=== PATIENT | male | born 1955 | race Caucasian/White ===

== ENCOUNTER → 2018-05-07 | Outpatient (CLI) | payer BC, MEDICARE ==
[2014-09-29 15:27] VITALS: BP 158/91
[~2018-05-07] MED LIST: BUDE10.2 IH; CETI10TA22 PO; CHOL500016 PO; CHOL500045 PO; CYCL10TA2 PO; DOCU-109 PO; FENO134C PO; FLUT1DIS IH; GLIP5TAB10 PO; HYDR-2762 PO; LEVO125T5 PO; LOSA1TAB22 PO; METF850T8 PO; METH750T2 PO; NAPR220C4 PO; NAPR250T PO; OXYC-327 PO; Oxycodone Hcl/Acetaminophen PO; PIOG15TA42 PO; PROAIR HFA8.5 GM IH; SIMV20TA3 PO; VENL75CA PO
[2018-05-07 14:57] LABS: BASO # 0.1 x10^3/uL (0.0-0.2); BASO % 1 % (0-3); EOS # 0.2 x10^3/uL (0.0-0.7); EOS % 3 % (0-3); HEMATOCRIT 36.1 % (39.0-53.0); HEMOGLOBIN 12.4 g/dL (13.0-17.5); LYMPH # 1.9 x10^3/uL (1.0-4.8); LYMPH % 30 % (24-48); MEAN CORPUSCULAR HEMOGLOBIN 32 pg (25-35); MEAN CORPUSCULAR HGB CONC 34 g/dL (31-37); MEAN CORPUSCULAR VOLUME 92 fL (79-100); MONO # 0.5 x10^3/uL (0.0-1.1); MONO % 9 % (0-9); NEUT # 3.6 x10^3uL (1.8-7.7); NEUT % 57 % (31-73); PLATELET COUNT 201 x10^3/uL (140-400); RED BLOOD COUNT 3.92 x10^6/uL (4.30-5.70); RED CELL DISTRIBUTION WIDTH 14.9 % (11.5-14.5); WHITE BLOOD COUNT 6.2 x10^3/uL (4.0-11.0)
[2018-05-07 15:17] LABS: ALBUMIN 3.9 g/dL (3.4-5.0); ALBUMIN/GLOBULIN RATIO 1.1 (1.0-1.7); CALCIUM 9.4 mg/dL (8.5-10.1); POTASSIUM 3.9 mmol/L (3.5-5.1); TOTAL BILIRUBIN 0.4 mg/dL (0.2-1.0); TOTAL PROTEIN 7.3 g/dL (6.4-8.2)
== END | disposition home or self-care (01) ==
LOC: SURGPAT 13:46
PROVIDERS: ATTEND Neurological Surgery
DX: Z01.818 Encounter for other preprocedural examination (principal); M48.062 Spinal stenosis, lumbar region with neurogenic claudication; M54.16 Radiculopathy, lumbar region
CPT/HCPCS: 36415; 80053; 85025; 87641

== ENCOUNTER 2018-05-14 07:13 | Observation (INO) | payer OTHER, MEDICARE ==
[2018-05-14] VITALS (9 sets, daily range): BP systolic 129–146; BP diastolic 70–87
[~2018-05-14] VITALS: Ht 182.9 cm; Wt 140.6 kg
[~2018-05-14 07:13] MED LIST changes: +BACITRACIN 50,000 UNIT in IV NORMAL SALINE 1000ML BAG 1,000 ML IRR ONE; +BUPIVAC MPF-EPI 0.5%-1:200000 30 ML VIAL. ONE; +GELATIN SPONGE SIZE 100. ONE; -HYDR-2762 PO; +KETOROLAC 60 MG/2 ML INJ FOR OR. ONE; +LIDOCAINE 1% PF 2 ML VIAL. ID PRN; -METH750T2 PO; +ONDANSETRON PF 4 MG/2 ML VIAL. IV PRN; +PROCHLORPERAZINE 10 MG/2 ML VIAL. IV PRN; +THROMBIN TOPICAL 20,000 UNIT SPRAY.SYRN KIT TP ONE; +ceFAZolin SODIUM 3 GM in IV DEXTROSE 5% 100ML 100 ML IV PRN; +fentaNYL PF VIAL 100 MCG/2 ML VIAL IV PRN
[2018-05-14] MEDS: IV RINGERS,LACTATED 1000ML 1,000 ML IV SCH ×2 (08:04→14:16)
[2018-05-14] MEDS ORDERED: ROCURONIUM 50 MG/5 ML VIAL. ONE (08:05)
[2018-05-14] MEDS ORDERED: PROPOFOL 50 ML IV ONE ×4 (08:05→12:13)
[2018-05-14] MEDS ORDERED: PHENYLEPHRINE in 0.9% NACL PF 1 MG/10 ML SYRINGE. IV ONE (08:05)
[2018-05-14] MEDS ORDERED: DEXAMETHASONE SOD PHOS 20 MG/5 ML VIAL. ONE (08:05)
[2018-05-14] MEDS ORDERED: LIDOCAINE 2% PF Vial for OR 5 ML VIAL. ONE (08:05)
[2018-05-14] MEDS ORDERED: PROPOFOL 20 ML IV ONE (08:05)
[2018-05-14] MEDS ORDERED: ONDANSETRON PF 4 MG/2 ML VIAL. ONE ×2 (08:05→08:06)
[2018-05-14] MEDS ORDERED: REMIFENTANIL 2 MG VIAL. IV ONE (08:06)
[2018-05-14] MEDS ORDERED: MINERAL OIL/PETROLATUM,WHITE OPHTH OINT 3.5GM TUBE. ONE (08:13)
[2018-05-14] MEDS ORDERED: 0.9 % SODIUM CHLORIDE 20 ML VIAL. IJ ONE ×2 (08:13)
[2018-05-14] MEDS ORDERED: PHENYLEPHRINE 10 MG/ML VIAL. ONE (08:13)
[2018-05-14] MEDS ORDERED: SUCCINYLCHOLINE 200 MG/10 ML VIAL. ONE (08:53)
[2018-05-14] MEDS ORDERED: GLYCOPYRROLATE 1 MG/5 ML VIAL. ONE (08:55)
[2018-05-14] MEDS ORDERED: ePHEDrine PF IN SALINE 50 MG/5 ML DISP.SYRIN IV ONE (09:05)
[2018-05-14] MEDS ORDERED: THROMBIN TOPICAL 20,000 UNIT SPRAY.SYRN KIT TP ONE (10:35)
[2018-05-14] MEDS ORDERED: GELATIN SPONGE SIZE 100. ONE (10:35)
[2018-05-14] MEDS ORDERED: DESFLURANE > 120 MINUTES IH ONE (11:07)
[2018-05-14] MEDS ORDERED: REMIFENTANIL 1 MG VIAL. IV ONE ×2 (11:21→12:57)
[2018-05-14] MEDS ORDERED: ceFAZolin SODIUM 3 GM in IV DEXTROSE 5% 100ML 100 ML IV ONE (13:00)
[2018-05-14] MEDS: fentaNYL PF VIAL 100 MCG/2 ML VIAL IV PRN ×3 (14:16→14:55)
[2018-05-14] MEDS ORDERED: NON FORMULARY ITEM (Albuterol Sulfate (Proair Hfa Inhaler) 2 PUFF) IH SCH (14:30)
[2018-05-14] MEDS ORDERED: MAGNESIUM HYDROXIDE 2,400 MG/30 ML ORAL.SUSP. PO PRN (14:30)
[2018-05-14] MEDS ORDERED: MAG HYDROX/ALUMINUM HYD/SIMETH 30 ML ORAL.SUSP PO PRN (14:30)
[2018-05-14] MEDS ORDERED: fentaNYL PF VIAL 100 MCG/2 ML VIAL IV PRN (14:30)
[2018-05-14] MEDS ORDERED: diphenhydrAMINE HCL 25 MG CAPSULE PO PRN (14:30)
[2018-05-14] MEDS ORDERED: ACETAMINOPHEN 325 MG TABLET. PO PRN (14:30)
[2018-05-14] MEDS ORDERED: 0.9 % SODIUM CHLORIDE 10 ML DISP.SYRIN. IV PRN (14:30)
[2018-05-14] MEDS ORDERED: DEXTROSE 50% 25 GM / 50ML DISP.SYRIN. IV PRN (14:30)
[2018-05-14] MEDS ORDERED: ZOLPIDEM 5 MG TABLET. PO PRN (14:30)
[2018-05-14] MEDS ORDERED: NON FORMULARY ITEM (Budesonide/Formoterol Fumarate (Symbicort 160-4.5 Mcg Inhaler) 2 PUFF) IH PRN (14:30)
[2018-05-14] MEDS ORDERED: ONDANSETRON PF 4 MG/2 ML VIAL. IV PRN (14:30)
[2018-05-14] MEDS ORDERED: CALCIUM CARBONATE 500 MG TAB.CHEW PO PRN (14:30)
[2018-05-14] MEDS ORDERED: ALBUTEROL SULFATE 2.5 MG/3 ML NEBU. NEB PRN (14:45)
[2018-05-14] MEDS ORDERED: NAPROXEN 250 MG TABLET PO PRN (14:45)
[2018-05-14] MEDS: HYDROcodone/APAP 5/325MG 1 TAB TABLET PO PRN ×3 (15:54→23:03)
[2018-05-14] MEDS: ALBUTEROL SULFATE 2.5 MG/3 ML NEBU. NEB SCH ×2 (16:19→19:09)
[2018-05-14] MEDS: metFORMIN 850 MG TABLET PO SCH (16:43)
[2018-05-14] MEDS: BUDESONIDE 0.5 MG/2 ML NEBU. NEB SCH (19:09)
[2018-05-14] MEDS: METHOCARBAMOL 750 MG TABLET PO SCH (20:46)
[2018-05-14] MEDS: PIOGLITAZONE 15 MG TABLET. PO SCH (20:46)
[2018-05-14] MEDS: POTASSIUM CL 20MEQ-0.45% NACL 1,000 ML IV SCH (20:46)
[2018-05-14] MEDS: glipiZIDE 5 MG TABLET PO SCH (20:46)
[2018-05-14] MEDS: DOCUSATE SODIUM 100 MG CAPSULE. PO SCH (20:46)
[2018-05-14] MEDS ORDERED: DOCUSATE SODIUM 100 MG CAPSULE. PO SCH (21:00)
[2018-05-14] MEDS ORDERED: SIMVASTATIN 20 MG TABLET PO SCH (21:00)
[2018-05-14] MEDS ORDERED: CYCLOBENZAPRINE 10 MG TABLET. PO SCH (21:00)
[2018-05-15 02:55] VITALS: BP 123/70
[2018-05-15] MEDS: HYDROcodone/APAP 5/325MG 1 TAB TABLET PO PRN ×3 (03:13→11:07)
[2018-05-15] MEDS: POTASSIUM CL 20MEQ-0.45% NACL 1,000 ML IV SCH (04:20)
[2018-05-15] MEDS ORDERED: LEVOTHYROXINE 125 MCG TABLET PO SCH (06:00)
[2018-05-15 06:30] VITALS: BP 128/73
[2018-05-15] MEDS: BUDESONIDE 0.5 MG/2 ML NEBU. NEB SCH (06:50)
[2018-05-15] MEDS: ALBUTEROL SULFATE 2.5 MG/3 ML NEBU. NEB SCH ×2 (06:50→10:38)
[2018-05-15] MEDS: DOCUSATE SODIUM 100 MG CAPSULE. PO SCH (07:49)
[2018-05-15] MEDS: glipiZIDE 5 MG TABLET PO SCH (07:49)
[2018-05-15] MEDS: metFORMIN 850 MG TABLET PO SCH (07:50)
[2018-05-15] MEDS: PIOGLITAZONE 15 MG TABLET. PO SCH (07:50)
[2018-05-15] MEDS: METHOCARBAMOL 750 MG TABLET PO SCH (07:50)
[2018-05-15 08:43] VITALS: BP 124/64
[2018-05-15] MEDS ORDERED: CHOLECALCIFEROL (VITAMIN D3) 5,000 UNIT CAPSULE PO SCH (09:00)
[2018-05-15] MEDS ORDERED: FENOFIBRATE,MICRONIZED 134 MG CAPSULE PO SCH (09:00)
[2018-05-15] MEDS ORDERED: NON FORMULARY ITEM (Losartan/Hydrochlorothiazide (Losartan-Hctz 100-25 Mg Tab) 1 TAB) PO SCH (09:00)
[2018-05-15] MEDS ORDERED: hydroCHLOROthiazide 25 MG TABLET PO SCH (09:00)
[2018-05-15] MEDS ORDERED: CETIRIZINE HCL 10 MG TABLET. PO SCH (09:00)
[2018-05-15] MEDS ORDERED: LOSARTAN POTASSIUM 50 MG TABLET. PO SCH (09:00)
[2018-05-15] MEDS ORDERED: VENLAFAXINE XR 37.5 MG CAP.ER.24H. PO SCH (09:00)
--- NOTE | 2018-05-15 10:06 | DISCH ---
DISCHARGE INSTRUCTIONS Condition on Discharge Condition on Discharge: Stable Activity After Discharge Activity Instructions for Disc: Activity as tolerated, Avoid exertion, Walk in house Other activity instructions: ambulation is the only exercise permitted; grad increase time and distance Bathing Instructions: Shower-keep dressing dry, No Tub Bath until see Lifting Instructions after Dis: No heavy lifting, No pulling or pushing, Do not lift >10 pounds Exercise Instruction after Dis: Exercise per therapy Driving Instructions after Dis: No driving for 2 weeks Weight Bearing Status after Di: No restrictions, Full weight bearing, As tolerated Diet after Discharge Diet after Discharge: Diabetic No Calorie Level Diet Texture: Regular Liquid Texture: Thin Liquid Wound Incision Care Wound/Incision Care: Ice to area for comfort, Keep wound/cast CDI Other wound/incision instructi: may remove dresssing in 48 hrs if dry then may shower, no soaking Wound Care Equipment: Dressings Checks after Discharge DC Comment: increase fruits, vegetables and fiber attempt to BM every 2-3 days Contacting the [facility] after DC Call your doctor for: Concerns you may have Follow-Up Follow Up With: call [phone] for a 2 week post op appt with Ita/JOLYNN Meredith MD May 15, 2018 10:06
[2018-05-15] MEDS ORDERED: HYDR-2762 PO (10:09)
[2018-05-15] MEDS ORDERED: METH750T2 PO (10:09)
[2018-05-15 10:47] VITALS: BP 116/79
--- NOTE | 2018-05-15 10:58 | PDOC ---
PROGRESS NOTES Subjective Subjective up ambulating in [place] with PT Some incisional/ back and left leg pain wants to go home Objective Objective Vital Signs Date Time Temp Pulse Resp B/P (MAP) Pulse Ox O2 Delivery O2 Flow Rate FiO2 05/15/18 10:47 97.4 74 18 116/79 (91) 98 Room Air 97.4 05/14/18 13:45 10 Intake and Output 05/15/18 07:00 Intake Total 5227 ml Output Total 50 ml Balance 5177 ml Intake Oral 2240 ml IV Total 2987 ml Output Urine Total 0 ml Estimated Blood Loss 50 ml # Voids 4 Physical Exam General: Alert, Oriented X3, Cooperative MUSCULOSKELETAL: Other (CORDERO) Neuro: Normal speech Skin: Other (Dressing Dry and intact, flat) Plan Plan of Care may dc home f/u 2 weeks Comment Review of Relevant I have reviewed the following items jarrod (where applicable) has been applied. Labs Laboratory Tests Test 05/14/18 07:53 05/14/18 14:30 05/14/18 16:19 05/14/18 20:43 Glucose (Fingerstick) 132 mg/dL (70-99) 161 mg/dL (70-99) 161 mg/dL (70-99) 216 mg/dL (70-99) Test 05/15/18 06:27 Glucose (Fingerstick) 115 mg/dL (70-99) Laboratory Tests Test 05/14/18 14:30 05/14/18 16:19 05/14/18 20:43 05/15/18 06:27 Glucose (Fingerstick) 161 mg/dL (70-99) 161 mg/dL (70-99) 216 mg/dL (70-99) 115 mg/dL (70-99) Medications Current Medications Ondansetron HCl (Zofran) 4 mg PRN Q6HRS PRN IV NAUSEA/VOMITING; Start at 07:00; Stop 05/14/18 at 14:45; Status DC Fentanyl Citrate (Fentanyl 2ml Vial) 25 mcg PRN Q5MIN PRN IV MILD PAIN; Start 05/14/18 at 07:00; Stop 05/14/18 at 16:11; Status DC Fentanyl Citrate (Fentanyl 2ml Vial) 50 mcg PRN Q5MIN PRN IV MODERATE TO SEVERE PAIN Last administered on 05/14/18at 14:55; Start 05/14/18 at 07:00; Stop 05/14/18 at 16:11; Status DC Ringer's Solution 1,000 ml @ 30 mls/hr Q24H IV Last administered on at 14:16; Start 05/14/18 at 07:00; Stop 05/14/18 at 16:11; Status DC Lidocaine HCl (Xylocaine-Mpf 1% 2ml Vial) 2 ml PRN 1X PRN ID PRIOR TO IV START ; Start 05/14/18 at 07:00; Stop 05/14/18 at 16:11; Status DC Prochlorperazine Edisylate (Compazine) 5 mg PACU PRN PRN IV NAUSEA, MRX1; Start 05/14/18 at 07:00; Stop 05/14/18 at 16:11; Status DC Bacitracin 63390 unit/Sodium Chloride 1,000 ml @ 1,000 mls/hr 1X ONCE IRR Last administered on 05/14/18at 09:37; Start 05/14/18 at 06:00; Stop 05/14/18 at 06:59; Status DC Cefazolin Sodium 3 gm/Dextrose 100 ml @ 200 mls/hr 1X PREOP PRN IV PRIOR TO PROCEDURE Last administered on 05/14/18at 09:12; Start 05/14/18 at 06:00; Stop 05/14/18 at 15:00; Status DC Gelatin (Gelfoam Size 100) 1 each STK-MED ONCE .ROUTE Last administered on at 09:37; Start 05/14/18 at 06:15; Stop 05/14/18 at 07:15; Status DC Bupivacaine HCl/ Epinephrine Bitart (Sensorcain-Mpf Epi 0.5%-1:[id number]) 30 ml STK -MED ONCE .ROUTE Last administered on 05/14/18at 09:37; Start 05/14/18 at 06: 15; Stop 05/14/18 at 07:15; Status DC Ketorolac Tromethamine (Toradol For Or Only) 60 mg STK-MED ONCE .ROUTE Last administered on 05/14/18at 09:37; Start 05/14/18 at 06:15; Stop 05/14/18 at 07 :15; Status DC Thrombin 20,000 unit STK-MED ONCE TP Last administered on 05/14/18at 09:37; Start 05/14/18 at 06:15; Stop 05/14/18 at 07:16; Status DC Propofol 20 ml @ As Directed STK-MED ONCE IV ; Start 05/14/18 at 08:05; Stop 05/14/18 at 08:06; Status DC Dexamethasone Sodium Phosphate (Decadron) 20 mg STK-MED ONCE .ROUTE ; Start at 08:05; Stop 05/14/18 at 08:06; Status DC Lidocaine HCl (Lidocaine Pf 2% Vial) 5 ml STK-MED ONCE .ROUTE ; Start 05/14/18 at 08:05; Stop 05/14/18 at 08:06; Status DC Ondansetron HCl (Zofran) 4 mg STK-MED ONCE .ROUTE ; Start 05/14/18 at 08:05; Stop 05/14/18 at 08:06; Status DC Phenylephrine HCl (PHENYLEPHRINE in 0.9% NACL PF) 1 mg STK-MED ONCE IV ; Start 05/14/18 at 08:05; Stop 05/14/18 at 08:06; Status DC Propofol 50 ml @ As Directed STK-MED ONCE IV ; Start 05/14/18 at 08:05; Stop 05/14/18 at 08:06; Status DC Rocuronium [place] (Zemuron) 50 mg STK-MED ONCE .ROUTE ; Start 05/14/18 at 08: 05; Stop 05/14/18 at 08:06; Status DC Remifentanil HCl (Ultiva) 2 mg STK-MED ONCE IV ; Start 05/14/18 at 08:06; Stop 05/14/18 at 08:07; Status DC Ondansetron HCl (Zofran) 4 mg STK-MED ONCE .ROUTE ; Start 05/14/18 at 08:06; Stop 05/14/18 at 08:07; Status DC Phenylephrine HCl (Sumit-Synephrine Inj) 10 mg STK-MED ONCE .ROUTE ; Start at 08:13; Stop 05/14/18 at 08:14; Status DC Multi-Ingred Cream/Lotion/Oil/ Oint (Artificial Tears Eye Ointment) 7 danny STK- MED ONCE .ROUTE ; Start 10/29/18 at 08:13; Stop 05/14/18 at 08:14; Status DC Sodium Chloride (SODIUM CHLORIDE 20ml) 20 ml STK-MED ONCE IJ ; Start 05/14/18 at 08:13; Stop 05/14/18 at 08:14; Status DC Sodium Chloride (SODIUM CHLORIDE 20ml) 20 ml STK-MED ONCE IJ ; Start 05/14/18 at 08:13; Stop 05/14/18 at 08:14; Status DC Succinylcholine Chloride (Anectine) 200 mg STK-MED ONCE .ROUTE ; Start at 08:53; Stop 05/14/18 at 08:54; Status DC Glycopyrrolate (Robinul) 1 mg STK-MED ONCE .ROUTE ; Start 05/14/18 at 08:55; Stop 05/14/18 at 08:56; Status DC Ephedrine Sulfate (ePHEDrine PF IN SALINE SYRINGE) 50 mg STK-MED ONCE IV ; Start 05/14/18 at 09:05; Stop 05/14/18 at 09:06; Status DC Propofol 50 ml @ As Directed STK-MED ONCE IV ; Start 05/14/18 at 10:34; Stop 05/14/18 at 10:35; Status DC Propofol 50 ml @ As Directed STK-MED ONCE IV ; Start 05/14/18 at 11:04; Stop 05/14/18 at 11:05; Status DC Desflurane (Suprane) 90 ml STK-MED ONCE IH ; Start 05/14/18 at 11:07; Stop at 11:08; Status DC Remifentanil HCl (Ultiva) 1 mg STK-MED ONCE IV ; Start 05/14/18 at 11:21; Stop 05/14/18 at 11:22; Status DC Gelatin (Gelfoam Size 100) 1 each STK-MED ONCE .ROUTE Last administered on at 11:37; Start 05/14/18 at 10:35; Stop 05/14/18 at 11:36; Status DC Thrombin 20,000 unit STK-MED ONCE TP Last administered on 05/14/18at 11:37; Start 05/14/18 at 10:35; Stop 05/14/18 at 11:36; Status DC Propofol 50 ml @ As Directed STK-MED ONCE IV ; Start 05/14/18 at 12:13; Stop 05/14/18 at 12:14; Status DC Cefazolin Sodium 3 gm/Dextrose 100 ml @ 200 mls/hr 1X ONCE IV Last administered on 05/14/18at 13:02; Start 05/14/18 at 13:00; Stop 05/14/18 at 13 :29; Status DC Remifentanil HCl (Ultiva) 1 mg STK-MED ONCE IV ; Start 05/14/18 at 12:57; Stop 05/14/18 at 12:58; Status DC Cetirizine HCl (ZyrTEC) 10 mg DAILY PO Last administered on 05/15/18at 07:50; Start 05/15/18 at 09:00 Cyclobenzaprine HCl (Flexeril) 10 mg QHS PO ; Start 05/14/18 at 21:00; Status Cancel Docusate Sodium (Colace) 100 mg BID PO Last administered on 05/15/18at 07:49; Start 05/14/18 at 21:00 Glipizide (Glucotrol) 5 mg BID PO Last administered on 05/15/18at 07:49; Start 05/14/18 at 21:00 Metformin HCl (Glucophage) 850 mg BIDWMEALS PO Last administered on 05/15/18at 07:50; Start 05/14/18 at 17:00 Non-Formulary Medication (Albuterol Sulfate (Proair Hfa Inhaler)) 2 puff PRN Q4- 6HRS IH ; Start 05/14/18 at 14:30; Status UNV Non-Formulary Medication (Budesonide/ Formoterol Fumarate (Symbicort 160-4.5 Mcg Inhaler)) 2 puff BID PRN IH SHORTNESS OF BREATH; Start 05/14/18 at 14:30; Status UNV Vitamin D (Vitamin D3) 5,000 unit DAILY PO Last administered on 05/15/18at 07: 50; Start 05/15/18 at 09:00 Fenofibrate (Lofibra) 134 mg DAILY PO Last administered on 05/15/18at 07:49; Start 05/15/18 at 09:00 Levothyroxine Sodium (Synthroid) 125 mcg DAILY06 PO Last administered on at 06:27; Start 05/15/18 at 06:00 Non-Formulary Medication (Losartan/ Hydrochlorothiazide (Losartan-Hctz 100-25 Mg Tab)) 1 tab DAILY PO ; Start 05/15/18 at 09:00; Status UNV Naproxen (Naprosyn) 250 mg PRN BID PRN PO PAIN Last administered on 05/14/18at 20:58; Start 05/14/18 at 14:45 Pioglitazone HCl (Actos) 15 mg BID PO Last administered on 05/15/18at 07:50; Start 05/14/18 at 21:00 Simvastatin (Zocor) 20 mg HS PO Last administered on 05/14/18at 20:46; Start 05/14/18 at 21:00 Venlafaxine HCl (Effexor Xr) 75 mg DAILY PO Last administered on 05/15/18at 07: 50; Start 05/15/18 at 09:00 Fentanyl Citrate (Fentanyl 2ml Vial) 50 mcg PRN Q2HR PRN IV PAIN Last administered on 05/15/18at 08:39; Start 05/14/18 at 14:30 Acetaminophen (Tylenol) 650 mg PRN Q6HRS PRN PO MILD PAIN / TEMP; Start at 14:30 Al Hydroxide/Mg Hydroxide (Mylanta Plus Xs) 30 ml PRN Q3HRS PRN PO HEARTBURN / GAS; Start 05/14/18 at 14:30 Calcium Carbonate/ Glycine (Tums) 500 mg PRN Q3HRS PRN PO INDIGESTION; Start 05/14/18 at 14:30 Diphenhydramine HCl (Benadryl) 25 mg PRN Q6HRS PRN PO ITCHING; Start 05/14/18 at 14:30 Zolpidem Tartrate (Ambien) 5 mg PRN QHS PRN PO INSOMNIA, MAY REPEAT IN 1HR; Start 05/14/18 at 14:30 Sodium Chloride (Normal Saline Flush) 3 ml QSHIFT PRN IV AFTER MEDS AND BLOOD DRAWS; Start 05/14/18 at 14:30 Potassium Chloride/Sodium Chloride 1,000 ml @ 75 mls/hr [id number] IV Last administered on 05/14/18at 20:46; Start 05/14/18 at 15:00; Stop 05/15/18 at 05 :31; Status DC Acetaminophen/ Hydrocodone Bitart (Lortab 5/325) 1 tab PRN Q4HRS PRN PO MILD PAIN Last administered on 05/14/18at 18:28; Start 05/14/18 at 14:30 Acetaminophen/ Hydrocodone Bitart (Lortab 5/325) 2 tab PRN Q4HRS PRN PO MODERATE PAIN, SEVERE PAIN Last administered on 05/15/18at 07:15; Start at 14:30 Methocarbamol (Robaxin) 750 mg TID PO Last administered on 05/15/18at 07:50; Start 05/14/18 at 21:00 Docusate Sodium (Colace) 100 mg BID PO ; Start 05/14/18 at 21:00; Status UNV Magnesium Hydroxide (Milk Of Magnesia) 2,400 mg PRN Q12HR PRN PO CONSTIPATION; Start 05/14/18 at 14:30 Ondansetron HCl (Zofran) 4 mg PRN Q6HRS PRN IV NAUESA, 1ST CHOICE; Start 05/14 at 14:30 Dextrose (Dextrose 50%-Water Syringe) 12.5 gm PRN Q15MIN PRN IV SEE COMMENTS; Start 05/14/18 at 14:30 Losartan Potassium (Cozaar) 100 mg DAILY PO Last administered on 05/15/18at 09: 00; Start 05/15/18 at 09:00 Hydrochlorothiazide (Hydrodiuril) 25 mg DAILY PO Last administered on at 07:51; Start 05/15/18 at 09:00 Budesonide (Pulmicort) 0.5 mg RTBID NEB Last administered on 05/15/18at 06:50; Start 05/14/18 at 20:00 Albuterol Sulfate (Ventolin Neb Soln) 2.5 mg RTQID NEB Last administered on at 06:50; Start 05/14/18 at 16:00 Albuterol Sulfate (Ventolin Neb Soln) 2.5 mg PRN Q4HRS PRN NEB SHORTNESS OF BREATH; Start 05/14/18 at 14:45 Active Scripts Active Hydrocodone-Apap 7.5-325 (Hydrocodone Bit/Acetaminophen) 1 Each Tablet 1 Tab PO PRN Q6HRS PRN Methocarbamol 750 Mg Tablet 750 Mg PO TID Colace (Docusate Sodium) 100 Mg Capsule 100 Mg PO BID Reported Vitamin D3 (Cholecalciferol (Vitamin D3)) 5,000 Unit Tablet 1 Tab PO DAILY Symbicort 160-4.5 Mcg Inhaler (Budesonide/Formoterol Fumarate) 10.2 Gm Hfa.aer.ad 2 Puff IH BID PRN Aleve (Naproxen Sodium) 220 Mg Capsule 220 Mg PO BID PRN Proair Hfa Inhaler (Albuterol Sulfate) 8.5 Gm Hfa.aer.ad 2 Puff IH PRN Q4-6HRS Zyrtec (Cetirizine Hcl) 10 Mg Tablet 1 Tab PO DAILY Simvastatin 20 Mg Tablet 1 Tab PO QHS Fenofibrate (Fenofibrate,Micronized) 134 Mg Capsule 1 Cap PO DAILY Effexor Xr (Venlafaxine Hcl) 75 Mg Cap.er.24h 1 Cap PO DAILY Levothyroxine Sodium 125 Mcg Tablet 1 Tab PO DAILY Losartan-Hctz 100-25 Mg Tab (Losartan/Hydrochlorothiazide) 1 Each Tablet 1 Tab PO DAILY Actos (Pioglitazone Hcl) 15 Mg Tablet 15 Mg PO BID Glipizide 5 Mg Tablet 1 Tab PO BID Metformin Hcl 850 Mg Tablet 1 Tab PO BID Vitals/I & O Vital Sign - Last 24 Hours 05/14/18 05/14/18 05/14/18 05/14/18 13:30 13:30 13:45 14:00 Pulse 91 93 88 Resp 20 20 20 B/P (MAP) 126/71 121/67 125/58 Pulse Ox 100 100 93 O2 Delivery Mask Simple Mask Simple Mask Room Air O2 Flow Rate 10 10 10 05/14/18 05/14/18 05/14/18 05/14/18 14:15 14:16 14:23 14:30 Pulse 90 94 Resp 20 20 20 20 B/P (MAP) 126/57 126/75 Pulse Ox 92 99 93 96 O2 Delivery Room Air Room Air Room Air Room Air 05/14/18 05/14/18 05/14/18 05/14/18 14:45 14:55 15:00 15:15 Temp 97.0 97.0 Pulse 96 87 Resp 20 20 20 B/P (MAP) 128/65 103/76 Pulse Ox 97 96 93 O2 Delivery Room Air Room Air Room Air 05/14/18 05/14/18 05/14/1805/14/18 15:15 15:30 15:54 16:02 Temp 97.6 97.6 Pulse 93 91 88 B/P (MAP) 135/87 (103) 137/70 (92) 137/77 (97) Pulse Ox 95 93 O2 Delivery Room Air Room Air 05/14/18 05/14/18 05/14/18 05/14/18 16:15 16:27 16:45 17:15 Pulse 86 93 94 B/P (MAP) 134/76 (95) 140/73 (95) 145/74 (97) Pulse Ox 94 93 O2 Delivery Room Air Room Air 05/14/18 05/14/18 05/14/18 05/14/18 18:15 18:28 19:10 19:15 Temp 97.6 97.6 97.6 97.6 Pulse 96 98 Resp 18 B/P (MAP) 146/80 (102) 136/76 (96) Pulse Ox 98 96 96 O2 Delivery Room Air Room Air Room Air 05/14/18 05/14/18 05/14/18 05/14/18 19:30 19:30 22:50 23:03 Temp 97.9 97.9 Pulse 88 Resp 20 16 20 B/P (MAP) 129/72 (91) Pulse Ox 96 94 96 O2 Delivery Room Air Room Air Room Air Room Air 05/15/18 05/15/18 05/15/18 05/15/18 00:04 02:55 03:13 04:15 Temp 97.7 97.7 Pulse 90 Resp 16 18 18 B/P (MAP) 123/70 (87) Pulse Ox 96 98 O2 Delivery Room Air Room Air Room Air 05/15/18 05/15/18 05/15/18 05/15/18 06:30 06:45 07:15 08:00 Temp 97.7 97.7 Pulse 72 Resp 16 20 B/P (MAP) 128/73 (91) Pulse Ox 97 95 O2 Delivery Room Air Room Air Room Air Room Air 05/15/18 05/15/18 05/15/18 08:43 09:00 10:47 Temp 97.4 97.4 Pulse 84 84 74 Resp 20 18 B/P (MAP) 124/64 (84) 124/64 116/79 (91) Pulse Ox 98 O2 Delivery Room Air Intake and Output 05/14/18 05/14/18 05/15/18 15:00 23:00 07:00 Intake Total 1820 ml 2320 ml 1087 ml Output Total 50 ml 0 ml Balance 1770 ml 2320 ml 1087 ml JESSICA VILLARREAL APRN May 15, 2018 10:57
--- NOTE | 2018-05-16 09:10 | PATHOLOGY ---
[facility] Accession Number: [id number] . 01 Material submitted: . LUMBAR DECOMPRESSION AND DISC . 01 Clinician provided ICD-10: m48.02 . 01 Clinical history: . Lumbar stenosis and neurogenic claudication, radiculopathy . 02 Diagnosis: Segments of fibrocartilaginous, fibroadipose, and skeletal muscle tissue and small segments of bone, lumbar disc and decompression: - Degenerative changes of fibrocartilaginous tissue. (JPM:fiona; 05/15/2018) QMS/05/16/2018 . 02 Comment: There is no evidence of an acute inflammatory process or malignancy. . 02 Electronically signed: . Sumit Montero MD, Pathologist NPI- [id number] . 01 Gross description: . Received in formalin labeled "Braydon Kuo, lumbar decompression and disc," are several pieces of glistening, fibrous tissue measuring 6.1 x 4.6 x 1.3 cm in aggregate dimensions, containing small fragments of possible bone. The tissue submitted representatively in cassette A1, following decalcification. (TSD; 05/14/2018) TOB/TOB . 02 Pathologist provided ICD-10: M51.36 . 02 CPT . 866941, [id number] Specimen Comment: A courtesy copy of this report has been sent to Specimen Comment: [phone], . Specimen Comment: Report sent to / DR THURSTON Specimen Comment: A duplicate report has been generated due to demographic updates. Performed at: [address], [place], [place] [id number] MD Andrew Correia MD Phone: [phone] Performed at: 02 [facility] [address] [place], [place] [id number] MD Sumit Montero MD Phone: [phone]
--- NOTE | 2018-05-17 17:54 | PREOP HP ---
DATE OF SERVICE: 05/14/2018 HISTORY OF PRESENT ILLNESS: The patient is a pleasant 63-year-old man. He is having difficulty with left-sided low back pain and pain, which radiates to his lower extremities. He notices numbness in the right anterior and left anterior thighs. He states on the right side, the feelings of burning and numbness are constant. If he stands and walks, he develops symptoms on the left as well. He reports that the further he walks, the worst the problem becomes and he can become unsteady with walking. He does gain relief by sitting. He rates his pain a 6/10. He has been taking Aleve and Tylenol. He had epidural steroid injections this year, which he said did not help him. PAST MEDICAL HISTORY: Hypertension, diabetes, hypothyroidism, vitamin D deficiency, hypercholesterolemia, arthritis, asthma. PAST SURGICAL HISTORY: Left knee replacement in 2009, right knee replacement in 2007, lumbar laminectomy at L2-L3, L3-L4 and L4-L5 in 09/2014. CURRENT MEDICATIONS: Aleve, metformin, glipizide, pioglitazone, losartan, levothyroxine, vitamin D, fenofibrate, simvastatin, Effexor, Zyrtec, Tylenol. ALLERGIES: NIASPAN, PERCOCET, TRAMADOL, SURGICAL GLUE AND ADHESIVE BANDAGES. FAMILY HISTORY: Diabetes, hypertension, cancer and heart disease. SOCIAL HISTORY: Employed, . Quit smoking more than 5 years ago. Drinks alcohol 1-2 times per week. REVIEW OF SYSTEMS: A 12-point review of systems was performed and is noncontributory except that mentioned above. PHYSICAL EXAMINATION: GENERAL: Alert, pleasant, in no acute distress. HEAD: Normocephalic, atraumatic. SKIN: Warm and dry, well-healed lumbar incision. MUSCULOSKELETAL: Lumbar paraspinal muscle bulk is normal, restricted range of motion of the lumbar spine, mild to moderate tenderness of the lumbar spine with palpation. Normal range of motion of the lower extremities bilaterally. EXTREMITIES: No clubbing, cyanosis or edema. NEUROLOGIC: Alert and oriented x 3. Strength is 5/5 in the bilateral lower extremities, sensory intact to light touch in the lower extremities bilaterally, reflexes were present and symmetric in the lower extremities bilaterally, negative straight leg raising bilaterally, normal gait. IMAGING DATA: I reviewed a lumbar MRI scan. On that study, there is severe lumbar spinal stenosis at L3-L4 as well as marked lateral stenosis at L4-L5 on the left. ASSESSMENT AND PLAN: The patient has multilevel problems, but they are the greatest at L3-L4 and on the left side at L4-L5. He failed to improve with conservative measures. My recommendation is that he consider lumbar microsurgical decompression at L3-L4 and L4-L5. I spoke with him about the surgery and the risk. He understands he would like to go ahead. JOLYNN CH MD DR: LINDSEY/rima JOB#: [id number] / [id number] CHOCO
--- NOTE | 2018-05-22 21:32 | OP ---
DATE OF SURGERY: 05/14/2018 PREOPERATIVE DIAGNOSES: 1. Severe lumbar spinal stenosis L3-L4. 2. Lateral recess stenosis from hypertrophic facet and disc bulging, left L4-L5. OPERATIONS PERFORMED: 1. Bilateral lumbar hemilaminotomy and microdecompression L3-L4 with lumbar microdiscectomy right L3-L4. I might note that right L3-L4 is a reoperation. 2. Left hemilaminotomy L4-L5, decompression of dura and nerve root and microdiscectomy, left L4-L5. The operation was done with EMG monitoring, SSEP monitoring, fluoroscopy, microscopic dissection. SURGEON: Chandler Ch M.D. FLIGHT CONTROL SPECIALIST: SARAH Fernández assisted with the microdecompression and microdiscectomy as well as the closure. OPERATIVE INDICATIONS: The patient is a pleasant 63-year-old man who developed intractable back and bilateral leg pain and was found to have the above-mentioned findings on imaging studies. In 2015, he had undergone lumbar microsurgery at L3-L4 on the right. Because of the severe stenosis seen at L3-L4 and at L4-L5 lateral recess narrowing and because of his severe intractable pain, I recommended lumbar microsurgical decompression after he failed to improve with epidural steroid injections. He understood the surgery and the risks involved. He wished to go ahead. DESCRIPTION OF PROCEDURE: Following general endotracheal anesthesia, the patient was positioned prone on the Oscar table. Lumbar region was prepped and draped in standard fashion. CHRISTEL hose and A-V impulse boots were applied for DVT prophylaxis. Microscope was draped. Fluoroscope was draped and brought into the field. Monitoring was established. Ancef 3 grams was given less than 1 hour prior to initiation of the surgery. Using fluoroscopic guidance, a midline incision was made extending from L3 to L5. I dissected down through the skin and subcutaneous tissue and exposed right L3-L4. There was considerable scarring and I began to gently use the long curette to strip scar off of the lamina and outlined the edges of the previous hemilaminotomy. I then brought in the microscope and using the high speed air drill, I enlarged the previous hemilaminotomy superiorly, laterally and inferiorly. There was considerable scarring and I peeled away some thickened ligamentum flavum, which was positioned laterally and exposed the lateral dura and the exiting root enlarging previously made hemilaminotomy. I gently removed scar and exposed the lateral edge of the dura and was able to retract it medially and there was disc bulging which I felt was significant. I incised the ligament annulus and performed discectomy with pituitary rongeurs. There were subligamentous disc fragments as well as disc bulging and I performed a generous discectomy. The root was well decompressed. I irrigated copiously and then I went to the left side at this level and performed the identical operation with a generous hemilaminotomy carrying it virtually to the midline and fully decompressing the entire region, peeling away thickened ligamentum flavum, performing a partial foraminotomy. On this side, the disc was not bulging significantly, no discectomy was warranted. I did use a bipolar cautery judiciously for hemostasis. I then moved inferiorly to L4-L5 on the left and again through the microscope burred down a generous hemilaminotomy, trimmed away the ligamentum flavum, performed a partial foraminotomy and fully decompressed this region. At this level as I retracted the root medially, there was significant disc bulging and I incised the annulus and ligament and then performed discectomy with pituitary rongeurs. As I worked, the region became very well decompressed. At this point, I irrigated copiously with antibiotic solution. I ensured myself the roots were very well decompressed. I removed the retractors and obtained hemostasis in the muscle and then I closed the wound in layers with absorbable suture and the skin was closed with 4-0 subcuticular stitch. I was quite pleased with the surgery. CHANDLER CH MD DR: FEMI/rima JOB#: [id number] / [id number] CHOCO
== END 2018-05-15 11:30 | disposition home or self-care (01) ==
LOC: SURG 07:13 → 4 SOUTHEST 13:30
PROVIDERS: ADMIT Neurological Surgery; ATTEND Neurological Surgery
DX: M48.061 Spinal stenosis, lumbar region without neurogenic claudication (principal); J45.909 Unspecified asthma, uncomplicated; I10 Essential (primary) hypertension; E78.00 Pure hypercholesterolemia, unspecified; E11.9 Type 2 diabetes mellitus without complications; E03.9 Hypothyroidism, unspecified; Z82.49 Family history of ischemic heart disease and other diseases of the circulatory system; Z83.3 Family history of diabetes mellitus; Z96.653 Presence of artificial knee joint, bilateral
CPT/HCPCS: 63047; 63048; 76000; 82962; 88304; 88311; 94640; 94760; 96374; 97116; 97162; A7015; G0378; G0379; G8978; G8979; G8980; J0330; J0690; J1100; J1885; J2001; J2370; J2405; J2704; J3010; J3490; J7030; J7120; J7613; J7626